=== PATIENT | male | born 1955 | race Caucasian/White ===

== ENCOUNTER → 2017-02-25 11:07 | Outpatient (REF) | payer MEDICARE, SELFPAY | LOC: LAB 11:07 | PROVIDERS: Visit Provider Emergency Medicine | DX: Z79.899 Other long term (current) drug therapy (principal) ==

== ENCOUNTER → 2017-03-18 10:50 | Outpatient (REF) | payer MEDICARE, SELFPAY ==
[2017-03-18 14:05] LABS: Amphetamine/Metha Screen,Urine Negative ng/mL (<1000); Barbiturates Screen,Urine Negative ng/mL (<200); Benzodiazepines Screen,Urine Negative ng/mL (200); Cannabinoid Screen,Urine Negative ng/mL (<50); Cocaine Screen,Urine Negative ng/g (<300); Methadone Screen,Urine Negative ng/mL (<300); Opiate Screen,Urine Negative ng/mL (<300); Phencyclidine Screen,Urine Negative ng/mL (<25)
== END ==
LOC: LAB 10:50
PROVIDERS: Visit Provider Emergency Medicine
DX: Z79.899 Other long term (current) drug therapy (principal)
CPT/HCPCS: 80305

== ENCOUNTER → 2017-04-07 10:40 | Outpatient (REF) | payer MEDICARE, SELFPAY ==
[2017-04-07 20:25] LABS: Amphetamine/Metha Screen,Urine Negative ng/mL (<1000); Barbiturates Screen,Urine Negative ng/mL (<200); Benzodiazepines Screen,Urine Negative ng/mL (200); Cannabinoid Screen,Urine Negative ng/mL (<50); Cocaine Screen,Urine Negative ng/g (<300); Methadone Screen,Urine Negative ng/mL (<300); Opiate Screen,Urine Positive ng/mL (<300); Phencyclidine Screen,Urine Negative ng/mL (<25)
== END ==
LOC: LAB 10:40
PROVIDERS: Visit Provider Emergency Medicine
DX: Z79.899 Other long term (current) drug therapy (principal)
CPT/HCPCS: 80305

== ENCOUNTER → 2017-05-05 16:21 | Outpatient (REF) | payer MEDICARE, SELFPAY ==
[2017-05-06 14:25] LABS: Amphetamine/Metha Screen,Urine Negative ng/mL (<1000); Barbiturates Screen,Urine Negative ng/mL (<200); Benzodiazepines Screen,Urine Negative ng/mL (200); Cannabinoid Screen,Urine Negative ng/mL (<50); Cocaine Screen,Urine Negative ng/g (<300); Methadone Screen,Urine Negative ng/mL (<300); Opiate Screen,Urine Positive ng/mL (<300); Phencyclidine Screen,Urine Negative ng/mL (<25)
== END ==
LOC: LAB 16:21
PROVIDERS: Visit Provider Emergency Medicine
DX: Z79.899 Other long term (current) drug therapy (principal)
CPT/HCPCS: 80305

== ENCOUNTER → 2017-06-03 13:39 | Outpatient (REF) | payer MEDICARE, SELFPAY ==
[2017-06-03 16:32] LABS: Amphetamine/Metha Screen,Urine Negative ng/mL (<1000); Barbiturates Screen,Urine Negative ng/mL (<200); Benzodiazepines Screen,Urine Negative ng/mL (200); Cannabinoid Screen,Urine Negative ng/mL (<50); Cocaine Screen,Urine Negative ng/g (<300); Methadone Screen,Urine Negative ng/mL (<300); Opiate Screen,Urine Positive ng/mL (<300); Phencyclidine Screen,Urine Negative ng/mL (<25)
== END ==
LOC: LAB 13:39
PROVIDERS: Visit Provider Emergency Medicine
DX: Z79.899 Other long term (current) drug therapy (principal)
CPT/HCPCS: 80305

== ENCOUNTER → 2017-09-22 14:50 | Outpatient (REF) | payer MEDICARE, SELFPAY ==
[2017-09-22 17:46] LABS: Amphetamine/Metha Screen,Urine Negative ng/mL (<1000); Barbiturates Screen,Urine Negative ng/mL (<200); Benzodiazepines Screen,Urine Negative ng/mL (<200); Cannabinoid Screen,Urine Negative ng/mL (<50); Cocaine Screen,Urine Negative ng/mL (<300); Methadone Screen,Urine Negative ng/mL (<300); Opiate Screen,Urine Positive ng/mL (<300); Phencyclidine Screen,Urine Negative ng/mL (<25)
== END ==
LOC: LAB 14:50
PROVIDERS: Visit Provider Emergency Medicine
DX: Z79.899 Other long term (current) drug therapy (principal)
CPT/HCPCS: 80305

== ENCOUNTER → 2017-10-14 14:05 | Outpatient (REF) | payer MEDICARE, SELFPAY ==
[2017-10-14 19:06] LABS: Amphetamine/Metha Screen,Urine Negative ng/mL (<1000); Barbiturates Screen,Urine Negative ng/mL (<200); Benzodiazepines Screen,Urine Negative ng/mL (<200); Cannabinoid Screen,Urine Negative ng/mL (<50); Cocaine Screen,Urine Negative ng/mL (<300); Methadone Screen,Urine Negative ng/mL (<300); Opiate Screen,Urine Positive ng/mL (<300); Phencyclidine Screen,Urine Negative ng/mL (<25)
== END ==
LOC: LAB 14:05
PROVIDERS: Visit Provider Emergency Medicine
DX: Z79.899 Other long term (current) drug therapy (principal)
CPT/HCPCS: 80305

== ENCOUNTER → 2017-11-10 14:16 | Outpatient (CLI) | payer MEDICARE, SELFPAY ==
--- NOTE | 2017-11-10 14:18 | MR_ITS ---
MR lumbar spine wo con, MR 3-d myelogram/MRCP HISTORY: Low back pain, leg pain. ITS.REASON: back pain ORDERING PHYSICIAN: Edson Domínguez MD PATIENT AGE: 62 years Comparison: None TECHNIQUE: Standard multiplanar multiecho sequences are performed without contrast. 3-D MIP and myelographic images are also rendered and reviewed FINDINGS: There is normal alignment. There is slight reversal of lumbar lordosis. The spinal cord ends at the L1 level. Multilevel lumbar spondylosis is noted as described below. T12-L1: There is a broad-based right paracentral and foraminal disc protrusion causing right lateral recess and right-sided foraminal narrowing. Mild facet and ligamentum flavum hypertrophy is present. L1-L2: Severe degenerative disc disease with bulging disc along with facet and ligamentum flavum hypertrophy. There is moderate to severe right-sided foraminal narrowing accentuated by right facet hypertrophic change and moderate left foraminal narrowing L2-L3: Severe degenerative disc disease with broad-based bulging discs/disc osteophyte complex. Type II endplate changes are present. There is endplate irregularity with bulging disc both posteriorly and anteriorly. Severe facet hypertrophic change is present on the right causing severe right-sided lateral recess narrowing with impingement of the exiting L2 nerve root and the descending L3 nerve root on the right. There is mild left foraminal narrowing and moderate left lateral recess narrowing. The bulging disc osteophyte complex abuts the L3 nerve root on the left. L3-L4: Degenerative disc disease with bulging disc along with endplate hypertrophic change and facet and ligamentum flavum hypertrophy. There are small left paracentral disc protrusion. Prominent facet and ligamentum flavum hypertrophy is noted with severe lateral foraminal narrowing and severe bilateral lateral recess narrowing with transverse canal stenosis at 10 mm. The lateral recess narrowing is causing impingement upon the or nerve roots left greater than right. The severe foraminal narrowing may also be causing impingement upon the exiting L3 nerve roots. L4-L5: Degenerative disc disease with concentric bulging disc. There is severe facet and ligamentum flavum hypertrophy on both sides which is greater on the left with moderate right lateral recess and foraminal narrowing and severe left lateral recess and severe left-sided foraminal narrowing with impingement upon the exiting L4 nerve root and the descending L5 nerve root from the lateral recess narrowing. L5-S1: Degenerative disc disease with bulging disc with broad-based central and right paracentral disc protrusion along with facet and ligamentum flavum hypertrophy with moderate right-sided lateral recess and foraminal narrowing.. The disc does abut the anterior aspect of the right S1 nerve root. IMPRESSION: Severe lumbar spondylosis with multilevel degenerative disc disease, bulging disc, disc protrusions, facet and ligamentum flavum hypertrophy with severe foraminal and lateral recess narrowing with canal stenosis and multiple areas of nerve root impingement. Please see above for detailed description at each level
== END ==
PROVIDERS: PCP Emergency Medicine; Visit Provider Emergency Medicine
DX: M54.9 Dorsalgia, unspecified (principal); M54.5 Low back pain
CPT/HCPCS: 72148; 76376

== ENCOUNTER → 2017-11-10 16:03 | Outpatient (REF) | payer MEDICARE, SELFPAY ==
[2017-11-10 18:59] LABS: Amphetamine/Metha Screen,Urine Negative ng/mL (<1000); Barbiturates Screen,Urine Negative ng/mL (<200); Benzodiazepines Screen,Urine Positive ng/mL (<200); Cannabinoid Screen,Urine Positive ng/mL (<50); Cocaine Screen,Urine Negative ng/mL (<300); Methadone Screen,Urine Negative ng/mL (<300); Opiate Screen,Urine Positive ng/mL (<300); Phencyclidine Screen,Urine Negative ng/mL (<25)
== END ==
LOC: LAB 16:03
PROVIDERS: Visit Provider Emergency Medicine
DX: Z79.899 Other long term (current) drug therapy (principal); L02.512 Cutaneous abscess of left hand; L03.119 Cellulitis of unspecified part of limb
CPT/HCPCS: 72148; 76376; 80305; 87070; 87077; 87186; 87205

== ENCOUNTER 2017-11-11 15:26 | Observation (INO) ==
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
[2017-11-11 17:42] LABS: Basophils % 0.5 % (0.1-2.0); Eosinophils # 0.2 K/mm3 (0.0-0.4); Eosinophils % 2.8 % (0.1-12.0); Hematocrit 44.5 % (42.0-52.0); Hemoglobin 14.6 g/dL (14.1-18.0); Lymphocytes # 1.8 K/mm3 (0.7-4.5); Lymphocytes % 22.1 K/mm3 (10-50); Mean Corpuscular HGB Conc 32.9 g/dL (31.8-35.4); Mean Corpuscular Hemoglobin 32.7 pg (27.0-31.2); Mean Corpuscular Volume 99.5 fl (80-94); Mean Platelet Volume 7.1 fl (7.4-10.4); Monocytes # 0.4 K/mm3 (0.1-1.0); Monocytes % 5.1 % (1.7-9.3); Neutrophils # 5.7 K/mm3 (1.8-7.8); Neutrophils % 69.5 % (37.0-80.0); Platelet Count 289 K/mm3 (142-424); Red Blood Count 4.47 M/mm3 (4.60-6.20); Red Cell Distribution Width 13.5 % (11.5-17.5); White Blood Count 8.3 K/mm3 (4.8-10.8)
[2017-11-11 17:49] LABS: Albumin Level 3.6 gm/dL (3.4-5.0); Albumin/Globulin Ratio 0.6 (1.1-1.8); Bilirubin,Total 1.1 mg/dL (0.2-1.0); Calcium 9.1 mg/dL (8.5-10.1); Globulin 5.7 gm/dl (1.3-3.2); Potassium 3.5 mmoL/L (3.5-5.1); Total Protein,Serum 9.3 gm/dL (6.4-8.2)
[2017-11-11 18:16] LABS: Anion Gap 7.5 mEq/L (5-15)
[2017-11-12 07:34] LABS: Basophils % 0.6 % (0.1-2.0); Eosinophils # 0.3 K/mm3 (0.0-0.4); Eosinophils % 4.7 % (0.1-12.0); Hematocrit 41.5 % (42.0-52.0); Hemoglobin 13.7 g/dL (14.1-18.0); Lymphocytes # 1.6 K/mm3 (0.7-4.5); Lymphocytes % 26.4 K/mm3 (10-50); Mean Corpuscular Hemoglobin 33.6 pg (27.0-31.2); Mean Corpuscular Volume 101.7 fl (80-94); Mean Platelet Volume 7.8 fl (7.4-10.4); Monocytes # 0.4 K/mm3 (0.1-1.0); Monocytes % 7.1 % (1.7-9.3); Neutrophils # 3.7 K/mm3 (1.8-7.8); Neutrophils % 61.2 % (37.0-80.0); Platelet Count 238 K/mm3 (142-424); Red Blood Count 4.08 M/mm3 (4.60-6.20); Red Cell Distribution Width 13.5 % (11.5-17.5)
--- NOTE | 2017-11-12 07:34 | Pharmacy Consult Notes ---
[facility] Pharmacy VTE Monitoring - Patient Demographics Admission date: 11/12/17 Report Date: 11/12/17 Time: 07:33 Allergies/Adverse Reactions: Patient Allergies No Known Allergies Allergy (Verified 11/11/17 16:51) Height: 1.83 m Weight: 99.365 kg Patient Problems: Current Active Problems Tenosynovitis (Acute) Drug reaction (Acute) Cellulitis (Acute) - VTE Risk Labs: VTE Related Lab Results Hgb 14.6 g/dL (14.1-18.0) 11/11/17 17:25 Hct 44.5 % (42.0-52.0) 11/11/17 17:25 Plt Count 289 K/mm3 (142-424) 11/11/17 17:25 BUN 6 mg/dL (7-18) L 11/11/17 17:25 Creatinine 0.98 mg/dL (0.70-1.30) 11/11/17 17:25 Estimated Creat Clear 114 mL/min (0-300) 11/11/17 17:25 VTE Score: 3 VTE Risk Level: Low Risk Clinical Trial Participant: No - Prophylaxis VTE Prophylaxis Ordered?: Yes Types of VTE Prophylaxis: TEDS Knee High
[2017-11-12 08:04] LABS: Albumin Level 3.2 gm/dL (3.4-5.0); Albumin/Globulin Ratio 0.6 (1.1-1.8); Anion Gap 11.4 mEq/L (5-15); Bilirubin,Total 1.1 mg/dL (0.2-1.0); Globulin 5.2 gm/dl (1.3-3.2); Potassium 4.4 mmoL/L (3.5-5.1); Total Protein,Serum 8.4 gm/dL (6.4-8.2)
--- NOTE | 2017-11-26 13:20 | H&P/Discharge Summary ---
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 Apparently developed a cellulitis and was placed on Bactrim orally by primary care clinic. Over the past couple of days had increasing sloughing of his hands and no improvement of the redness and pain in flexion of the thumb. Came to the emergency department where ER physician felt that he had tenosynovitis and was admitted to hospital for intravenous antibiotics. [facility] History I have reviewed the patient's past medical history: Yes Medical History: Reports:: Chronic Obstructive Pulmonary Disease (COPD), Coronary Artery Disease, Gastroesophageal Reflux Disease(GERD), Hyperlipidemia, Hypertension, MRSA, Myocardial Infarction, Peripheral Artery Disease Other Medical History: Reports: Arthritis, Sinus Problems Laterality Cases: Right: Arthroscopy Knee, Bilateral: Total Hip Replacement Other Surgeries: Yes: Angioplasty, Colonoscopy, Colon Resection, Coronary Stent, Sinus Surgery, Other (RT ANKLE X 3,BACK SURGERY) Amputation: No Fractures: No - *Social History Smoking Status: Former smoker Tobacco Type: cigarettes Alcohol Intake: current Alcohol Intake Frequency:: 0-2 drinks per day Substance Use Type: denies use Occupational Status: retired [facility] - Psychiatric History Expresses thoughts of harming self/others: None Suicide Plan Description: No Plan *Family Hx:: Diabetes, Heart Attack, Stroke, Hypertension, Coronary Artery Disease, Hyperlipidemia Review of Systems - Review of Systems Review of systems:: pertinent systems reviewed and negative unless documented below - Constitutional Denies chills, Denies fever(s) - Eyes Denies blurry vision, Denies double vision - *Cardiovascular Denies irregular heart rhythm, Denies leg swelling, Denies shortness of breath when lying down - *Respiratory Denies change in phlegm color, Denies chest congestion - *Gastrointestinal Denies abdominal pain - *Musculoskeletal Reports joint swelling Exam Vital signs and Labs for Last 24 Hours: Temp Pulse Resp BP Pulse Ox 98.8 F 74 20 134/71 98 11/12/17 08:00 11/12/17 08:00 11/12/17 08:00 11/12/17 08:00 11/12/17 08:00 Laboratory Results - last 24 hr 11/11/17 17:25: WBC 8.3, RBC 4.47 L, Hgb 14.6, Hct 44.5, MCV 99.5 H, MCH 32.7 H, MCHC 32.9, RDW 13.5, Plt Count 289, MPV 7.1 L, Neut % (Auto) 69.5, Lymph % (Auto) 22.1, [place] % (Auto) 5.1, Eos % (Auto) 2.8, Baso % (Auto) 0.5, Neut # (Auto) 5.7, Lymph # (Auto) 1.8, [place] # (Auto) 0.4, Eos # (Auto) 0.2, Baso # (Auto) 0.0 11/11/17 17:25: Sodium 119 L, Potassium 3.5, Chloride 90 L, Carbon Dioxide 25, Anion Gap 7.5, BUN 6 L, Creatinine 0.98, Estimated Creat Clear 114, Estimated GFR 78, Est GFR ( Amer) 94, Glucose 100, Calcium 9.1, Total Bilirubin 1.1 H, AST 72 H, ALT 53, Alkaline Phosphatase 145 H, Total Protein 9.3 H, Albumin 3.6, Globulin 5.7 H, Albumin/Globulin Ratio 0.6 L 11/11/17 17:25: Lactate 1.3 11/12/17 07:25: WBC 6.0 D, RBC 4.08 L, Hgb 13.7 L, Hct 41.5 L, MCV 101.7 H, MCH 33.6 H, MCHC 33.0, RDW 13.5, Plt Count 238, MPV 7.8, Neut % (Auto) 61.2, Lymph % (Auto) 26.4, [place] % (Auto) 7.1, Eos % (Auto) 4.7, Baso % (Auto) 0.6, Neut # (Auto) 3.7, Lymph # (Auto) 1.6, [place] # (Auto) 0.4, Eos # (Auto) 0.3, Baso # (Auto) 0.0 11/12/17 07:25: Sodium 134 L, Potassium 4.4 D, Chloride 99, Carbon Dioxide 28, Anion Gap 11.4, BUN 6 L, Creatinine 0.98, Estimated Creat Clear 108, Estimated GFR 78, Est GFR ( Amer) 94, Glucose 95, Calcium 9.0, Total Bilirubin 1.1 H, AST 59 H, ALT 47, Alkaline Phosphatase 145 H, Total Protein 8.4 H, Albumin 3.2 L D, Globulin 5.2 H, Albumin/Globulin Ratio 0.6 L I & O for Last 24 hours: Intake & Output 11/09/17 11/10/17 11/11/17 11/12/17 11:59 11:59 11:59 11:59 Intake Total 910 / 910 Balance 910 / 910 Weight 219 lb 1 oz Narrative: Patient appears much older than his stated age. Oropharynx afflicted with nicotine changes and damage but otherwise clear. No JVD. Lungs have some rhonchi but this is consistent with his heavy smoking. Pulse rate is regular. Extremity exam shows no clubbing or edema. He has sloughing of his hands that is consistent with drug rash/reaction, and the IP joint of the right thumb has 1/2 cm closed scabbed laceration with erythema of approximately 2 cm surrounding this. There is no red streaking up the thumb. Function of the thumb remains normal and sensation is normal. Capillary refill is good. I marked the redness area out with permanent marker. Hospital Course Hospital Course: Patient was admitted to observation. Overnight received IV antibiotics and this morning notes that redness is improving. I do not believe patient has tenosynov itis. It appears to be a localized cellulitis. No joint involvement on exam. Plan to discharge patient on better gram-negative coverage with Augmentin and he has short-term follow-up with primary care office tomorrow morning. Results Labs on day of discharge: Labs from last 24 hours 11/12/17 11/12/17 11/11/17 07:25 07:25 17:25 WBC 6.0 D RBC 4.08 L Hgb 13.7 L Hct 41.5 L MCV 101.7 H MCH 33.6 H MCHC 33.0 RDW 13.5 Plt Count 238 MPV 7.8 Neut % (Auto) 61.2 Lymph % (Auto) 26.4 [place] % (Auto) 7.1 Eos % (Auto) 4.7 Baso % (Auto) 0.6 Neut # (Auto) 3.7 Lymph # (Auto) 1.6 [place] # (Auto) 0.4 Eos # (Auto) 0.3 Baso # (Auto) 0.0 Sodium 134 L Potassium 4.4 D Chloride 99 Carbon Dioxide 28 Anion Gap 11.4 BUN 6 L Creatinine 0.98 Estimated Creat Clear 108 Estimated GFR 78 Est GFR ( Amer) 94 Glucose 95 Lactate 1.3 Calcium 9.0 Total Bilirubin 1.1 H AST 59 H ALT 47 Alkaline Phosphatase 145 H Total Protein 8.4 H Albumin 3.2 L D Globulin 5.2 H Albumin/Globulin Ratio 0.6 L 11/11/17 11/11/17 17:25 17:25 WBC 8.3 RBC 4.47 L Hgb 14.6 Hct 44.5 MCV 99.5 H MCH 32.7 H MCHC 32.9 RDW 13.5 Plt Count 289 MPV 7.1 L Neut % (Auto) 69.5 Lymph % (Auto) 22.1 [place] % (Auto) 5.1 Eos % (Auto) 2.8 Baso % (Auto) 0.5 Neut # (Auto) 5.7 Lymph # (Auto) 1.8 [place] # (Auto) 0.4 Eos # (Auto) 0.2 Baso # (Auto) 0.0 Sodium 119 L Potassium 3.5 Chloride 90 L Carbon Dioxide 25 Anion Gap 7.5 BUN 6 L Creatinine 0.98 Estimated Creat Clear 114 Estimated GFR 78 Est GFR ( Amer) 94 Glucose 100 Lactate Calcium 9.1 Total Bilirubin 1.1 H AST 72 H ALT 53 Alkaline Phosphatase 145 H Total Protein 9.3 H Albumin 3.6 Globulin 5.7 H Albumin/Globulin Ratio 0.6 L DS: Diagnosis - Discharge Diagnosis (1) Cellulitis Status: Acute Discharge Medications - Medications for Discharge Home Medication List at Discharge: New Amoxicillin/Potassium Clav [Augmentin 875-125 Tablet] 1 tab PO Q12H #14 tab Mupirocin [Bactroban 2% Ointment 22gm tube] 1 applicatio TP TID #1 tube Continue tiotropium bromide 18 mcg capsule with inhalation device 1 cap INHALATION BID puff cephalexin 500 mg capsule 500 mg PO QID sulfamethoxazole 800 mg-trimethoprim 160 mg tablet 1 tab PO BID tab oxycodone-acetaminophen 7.5 mg-325 mg tablet 1 tab PO TID PRN #90 tab PRN Reason: pain Lisinopril [Lisinopril 20mg Tab] 20 mg PO DAILY Gabapentin [Gabapentin 400mg Cap] 400 mg PO BID Fluticasone Propionate 1 spray INTRANASAL DAILY Fluticasone/Vilanterol [Breo Ellipta] 1 inh INHALATION DAILY Albuterol Sulfate [Proventil HFA] 2 puff INHALATION TID Pantoprazole Sodium [Protonix 40mg tablet] 40 mg PO DAILY
== END 2017-11-12 10:30 | disposition home or self-care (01) ==
LOC: ER 15:26 → 2ND 15:26
PROVIDERS: ADMIT Internal Medicine Adolescent Medicine; ATTEND Emergency Medicine
CPT/HCPCS: 36415; 73130; 80053; 83605; 85025; 87040; 96365; 96367; 96375; 99284; G0378; J2405; J2543; J3370

== ENCOUNTER → 2017-12-21 18:10 | Outpatient (CLI) | payer MEDICARE, SELFPAY ==
[2017-12-21 20:17] LABS: Amphetamine/Metha Screen,Urine Negative ng/mL (<1000); Barbiturates Screen,Urine Negative ng/mL (<200); Benzodiazepines Screen,Urine Negative ng/mL (<200); Cannabinoid Screen,Urine Positive ng/mL (<50); Cocaine Screen,Urine Negative ng/mL (<300); Methadone Screen,Urine Negative ng/mL (<300); Opiate Screen,Urine Positive ng/mL (<300); Phencyclidine Screen,Urine Negative ng/mL (<25)
== END ==
PROVIDERS: Visit Provider Nurse Practitioner Family
DX: M54.5 Low back pain (principal)
CPT/HCPCS: 80305

== ENCOUNTER → 2018-02-01 18:45 | Outpatient (CLI) | payer MEDICARE, SELFPAY ==
[2018-02-01 19:25] LABS: Amphetamine/Metha Screen,Urine Negative ng/mL (<1000); Barbiturates Screen,Urine Negative ng/mL (<200); Benzodiazepines Screen,Urine Negative ng/mL (<200); Cannabinoid Screen,Urine Positive ng/mL (<50); Cocaine Screen,Urine Negative ng/mL (<300); Methadone Screen,Urine Negative ng/mL (<300); Opiate Screen,Urine Negative ng/mL (<300); Phencyclidine Screen,Urine Negative ng/mL (<25)
[2018-02-09 17:34] LABS: Opiates Negative ng/mL (Cutoff=100)
== END ==
PROVIDERS: Visit Provider Nurse Practitioner Family
DX: M54.5 Low back pain (principal)
CPT/HCPCS: 80305; 80361; G0480

== ENCOUNTER → 2018-03-02 17:50 | Outpatient (CLI) | payer MEDICARE, SELFPAY ==
[2018-03-02 20:57] LABS: Amphetamine/Metha Screen,Urine Negative ng/mL (<1000); Barbiturates Screen,Urine Negative ng/mL (<200); Benzodiazepines Screen,Urine Positive ng/mL (<200); Cannabinoid Screen,Urine Positive ng/mL (<50); Cocaine Screen,Urine Negative ng/mL (<300); Methadone Screen,Urine Negative ng/mL (<300); Opiate Screen,Urine Positive ng/mL (<300); Phencyclidine Screen,Urine Negative ng/mL (<25)
[2018-03-09 19:08] LABS: Alprazolam Negative (Cutoff=100); Benzodiazepines Negative ng/mL (Cutoff=100); Clonazepam Negative (Cutoff=100); Flurazepam Negative (Cutoff=100); Lorazepam Negative (Cutoff=100); Midazolam Negative (Cutoff=100); Temazepam Negative (Cutoff=100); Triazolam Negative (Cutoff=100)
== END ==
PROVIDERS: Visit Provider Nurse Practitioner Family
DX: G89.29 Other chronic pain (principal)
CPT/HCPCS: 80305; 80346

== ENCOUNTER → 2018-04-02 17:55 | Outpatient (CLI) | payer MEDICARE, SELFPAY ==
[2018-04-02 19:25] LABS: Amphetamine/Metha Screen,Urine Negative ng/mL (<1000); Barbiturates Screen,Urine Negative ng/mL (<200); Benzodiazepines Screen,Urine Negative ng/mL (<200); Cannabinoid Screen,Urine Negative ng/mL (<50); Cocaine Screen,Urine Negative ng/mL (<300); Methadone Screen,Urine Negative ng/mL (<300); Opiate Screen,Urine Positive ng/mL (<300); Phencyclidine Screen,Urine Negative ng/mL (<25)
== END ==
PROVIDERS: Visit Provider Nurse Practitioner Family
DX: G89.29 Other chronic pain (principal)
CPT/HCPCS: 80305

== ENCOUNTER → 2018-04-30 16:34 | Outpatient (CLI) | payer MEDICARE, SELFPAY ==
[2018-04-30 19:04] LABS: Amphetamine/Metha Screen,Urine Negative ng/mL (<1000); Barbiturates Screen,Urine Negative ng/mL (<200); Benzodiazepines Screen,Urine Negative ng/mL (<200); Cannabinoid Screen,Urine Negative ng/mL (<50); Cocaine Screen,Urine Negative ng/mL (<300); Methadone Screen,Urine Negative ng/mL (<300); Opiate Screen,Urine Positive ng/mL (<300); Phencyclidine Screen,Urine Negative ng/mL (<25)
== END ==
PROVIDERS: Visit Provider Emergency Medicine
DX: M54.5 Low back pain (principal)
CPT/HCPCS: 80305

== ENCOUNTER → 2018-05-31 17:56 | Outpatient (CLI) | payer MEDICARE, SELFPAY ==
[2018-05-31 19:44] LABS: Amphetamine/Metha Screen,Urine Negative ng/mL (<1000); Barbiturates Screen,Urine Negative ng/mL (<200); Benzodiazepines Screen,Urine Negative ng/mL (<200); Cannabinoid Screen,Urine Negative ng/mL (<50); Cocaine Screen,Urine Negative ng/mL (<300); Methadone Screen,Urine Negative ng/mL (<300); Opiate Screen,Urine Positive ng/mL (<300); Phencyclidine Screen,Urine Negative ng/mL (<25)
== END ==
PROVIDERS: Visit Provider Emergency Medicine
DX: M51.36 Other intervertebral disc degeneration, lumbar region (principal)
CPT/HCPCS: 80305

== ENCOUNTER → 2018-07-02 15:32 | Outpatient (CLI) | payer MEDICARE, SELFPAY ==
[2018-07-02 16:25] LABS: Amphetamine/Metha Screen,Urine Negative ng/mL (<1000); Barbiturates Screen,Urine Negative ng/mL (<200); Benzodiazepines Screen,Urine Negative ng/mL (<200); Cannabinoid Screen,Urine Negative ng/mL (<50); Cocaine Screen,Urine Negative ng/mL (<300); Methadone Screen,Urine Negative ng/mL (<300); Opiate Screen,Urine Positive ng/mL (<300); Phencyclidine Screen,Urine Negative ng/mL (<25)
== END ==
PROVIDERS: Visit Provider Emergency Medicine
DX: G89.29 Other chronic pain (principal); Z79.899 Other long term (current) drug therapy
CPT/HCPCS: 80305

== ENCOUNTER → 2018-08-03 18:04 | Outpatient (CLI) | payer MEDICARE, SELFPAY ==
[2018-08-03 19:18] LABS: Amphetamine/Metha Screen,Urine Negative ng/mL (<1000); Barbiturates Screen,Urine Negative ng/mL (<200); Benzodiazepines Screen,Urine Negative ng/mL (<200); Cannabinoid Screen,Urine Negative ng/mL (<50); Cocaine Screen,Urine Negative ng/mL (<300); Methadone Screen,Urine Negative ng/mL (<300); Opiate Screen,Urine Negative ng/mL (<300); Phencyclidine Screen,Urine Negative ng/mL (<25)
[2018-08-11 17:35] LABS: Opiates Negative (Cutoff=100)
== END ==
PROVIDERS: Visit Provider Nurse Practitioner Family
DX: M51.36 Other intervertebral disc degeneration, lumbar region (principal)
CPT/HCPCS: 80305; 80361; 80365; G0480

== ENCOUNTER → 2021-11-19 15:26 | Outpatient (CLI) | payer MEDICARE, SELFPAY ==
[2021-11-22 10:25] LABS: Microscopic, Urine URINE MICROSCOPIC (MICROSCOPIC)
[2021-11-22 11:32] LABS: Appearance,Urine CLEAR (Clear); Bilirubin,Urine Negative (Negative); Blood, Urine TRACE-I (Negative); Color,Urine YELLOW (Yellow); Glucose,Urine (UA) Negative (Negative); Ketones,Urine Negative (Negative); Leukocyte Esterase,Urine Negative (Negative); Nitrate,Urine Negative (Negative); Protein,Urine Negative (Negative); Specific Gravity, Urine >= 1.030 (1.005-1.030)
[2021-11-22 11:41] LABS: Squamous Epithelial Cell,Urine Occasional #/hpf (0-5); WBC,Urine Occasional #/hpf (0-3)
== END ==
PROVIDERS: PCP Internal Medicine; Visit Provider Internal Medicine
DX: R39.89 Other symptoms and signs involving the genitourinary system (principal)
CPT/HCPCS: 81001